=== PATIENT | female | born 1940 ===

== ENCOUNTER 2024-10-01 13:56 | Outpatient (CLI) | payer OTHER | END 2024-10-01 13:58 | disposition home or self-care (01) | LOC: SONOGRAMA 13:56 | PROVIDERS: ATTEND Pathology Anatomic Pathology | DX: D34 Benign neoplasm of thyroid gland (principal); E07.89 Other specified disorders of thyroid; D44.0 Neoplasm of uncertain behavior of thyroid gland; E04.1 Nontoxic single thyroid nodule ==